=== PATIENT | female | born 1965 | race Caucasian/White ===

== ENCOUNTER 2017-05-20 08:55 | Outpatient (CLI) | payer OTHER ==
--- NOTE | 2017-05-20 11:59 | MMO ---
BILATERAL SCREENING MAMMOGRAMS: Date: 05/20/17 Comparison made to prior exams from 2015 and 2014. This patient's mammogram was interpreted with the assistance of computer-aided detection. FINDINGS: Heterogeneously dense glandular pattern. No mass or distortion. No suspicious calcification. No signi ficant interval change. Recommend one year follow-up. IMPRESSION: BIRADS 1: Negative POS: MARK[facility]
== END 2017-05-20 08:56 | disposition home or self-care (01) ==
LOC: SCSMAMMO 08:55
PROVIDERS: ATTEND Family Medicine
DX: Z12.31 Encounter for screening mammogram for malignant neoplasm of breast (principal)
CPT/HCPCS: 77067